=== PATIENT | female | born 1965 | race Caucasian/White ===

== ENCOUNTER → 2017-05-09 | Outpatient (CLI) | payer MEDICARE ==
[~2017-05-09] MED LIST: FUROSEMIDE INJ 10 MG/ML 4 ML VIAL ONE; SINCALIDE 3 MCG/VIAL INJ ONE
--- NOTE | 2017-05-12 19:59 | Diagnostic Imaging Report ---
Renal Scan with Lasix Washout Clinical information: 51 F with renal colic Technique: Following intravenous administration of 10 mCi of Tc-99m MAG3, dynamic images of the kidneys in the posterior projection were obtained through 40 minutes. Lasix 40 mg was administered intravenously at 10 minutes post injection of the tracer. Report: Left kidney: Perfusion of the left kidney is prompt. The kidney has a normal reniform shape. Extraction of tracer from the blood pool is mildly decreased. Clearance of tracer from the renal parenchyma is prompt. Two calices are very mildly ectatic but the pelvicalyceal system in general is not dilated. Physiologic pooling of tracer within the pelvicalyceal system is seen. Drainage of tracer from the pelvicalyceal system is adequate prior to administration of Lasix. Washout of tracer from the pelvicalyceal system following administration of Lasix is rapid with a T-1/2 of 4 minutes (normal less than 15 minutes). No significant stasis of tracer is seen within the left ureter. Right kidney: Perfusion to the right kidney is prompt. The right kidney has a normal reniform shape. Extraction of tracer by the renal parenchyma is mildly decreased. Clearance of tracer from the renal parenchyma is prompt. Two very mildly ectatic calices are seen in the upper pole of the kidney but the pelvicalyceal system in general is not dilated. Physiologic pooling of tracer within the pelvicalyceal system is seen. Drainage of tracer from the pelvicalyceal system is adequate prior to administration of Lasix. Washout of tracer from the pelvicalyceal system following administration of Lasix is rapid with a T-1/2 of 4 minutes (normal less than 15 minutes). No significant stasis of tracer is seen within the right ureter. Differential renal function: The left kidney contributes 50% of total renal function and the right kidney contributes 50% (normal 43-57%). Impression: 1. Cannot exclude very mild medical renal disease in the left kidney versus patient mildly dehydrated at the time of the study. No hydronephrosis is present. No physiologically significant obstruction of the renal collecting system is present. 2. Cannot exclude very mild medical renal disease in the right kidney versus patient mildly dehydrated at the time of the study. No hydronephrosis is present. No physiologically significant obstruction of the renal collecting system is present. 3. The differential renal function is preserved. Signed by: Dr. Leesa Enamorado M.D. on 05/12/2017 7:56 PM
== END ==
LOC: NM 11:31
PROVIDERS: ATTEND Urology
DX: N13.30 Unspecified hydronephrosis (principal); N23 Unspecified renal colic
CPT/HCPCS: 78708; A9562; J1940; J2805

== ENCOUNTER → 2017-05-21 | Day surgery (SDC) | payer BC ==
[2017-05-19 14:37] LABS: ANION GAP 14.4 mmol/L (8-16); BLOOD UREA NITROGEN 15 mg/dL (7-26); BUN/CREATININE RATIO 17 (6-25); CALCIUM 9.4 mg/dL (8.4-10.2); CARBON DIOXIDE 28 mmol/L (22-29); CHLORIDE 102 mmol/L (98-107); CREATININE, SERUM 0.89 mg/dL (0.57-1.11); EST GLOMERULAR FILTRATION RATE > 60 ML/MIN (60-); GLUCOSE 126 mg/dL (74-118); POTASSIUM 3.4 mmol/L (3.5-5.1); SODIUM 141 mmol/L (136-145)
[~2017-05-21] MED LIST changes: +ADDERALL 30 MG30 MG PO; +ALPRAZOLAM1 MG PO; +AMPICILLIN SOD 1 GM/NS 50ML 50 ML IV ONE; +ARMOUR THYROID60 MG PO; +BELLADONNA/OPIUM 60 MG SUPP PR ONE; +CEFTRIAXONE SOD 1 GM VIAL ONE; +CYMBALTA30 MG PO; +DEXAMETHASONE SOD PHOS INJ 4 MG/ML VIAL ONE; +FENTANYL CITRATE/PF 100MCG/2 ML INJ ONE; +FLUTICASONE INH; -FUROSEMIDE INJ 10 MG/ML 4 ML VIAL ONE; +FUROSEMIDE40 MG PO; +IMITREX25 MG PO; +IOPAMIDOL 610MG/1ML 300 MG/ML VIAL IV ONE; +LIDOCAINE HCL 2% LOCAL INJ 5 ML SDV VIAL INJ ONE; +LYRICA50 MG PO; +MEDROXYPROGEST2.5 MG PO; +MIDAZOLAM HCL 2 MG/2 ML VIAL ONE; +MIDODRINE HCL2.5 MG PO; +MORPHINE SULFAT30 M2 PO; +MOTRIN200 MG PO; +MULTIVITAMINS1 EAC7 PO; +OMEGA-31000 MG; +ONDANSETRON HCL INJ 2 MG/ML VIAL ONE; +POTASSIUM CHLO10 ME1 PO; +PROPOFOL IV EMULSION 10 MG/ML 20 ML VIAL ONE; +SALAGEN5 MG PO; +SEROQUEL25 MG PO; +SEVOFLURANE INHAL SOLN 250 ML PEN BTL ONE; -SINCALIDE 3 MCG/VIAL INJ ONE; +TYLENOL PO; +ZYRTEC10 M3 PO; +[UNRECOGNIZED DRUG - OTHER] PO
--- OUTSIDE RECORDS SUMMARY | 2017-05-21 07:44 | XMS REPORT | Summary of Care ---
Author Author SHEIKH Kenia, EDUARDO Organization Unknown Address Unknown Phone Unavailable Care Team Providers Care Paint Pourer Name Role Phone ADDIE LARIOS MD Unavailable Unavailable Unavailable Unavailable Functional Status Name Dates Details Functional status health issues are not documented Status: Name Dates Details Cognitive status health issues are not documented Status: Problems Name Dates Details Small fiber neuropathy (356.9, G62.9) Status: Active Depression (311, F32.9) Status: Active Medications Name Dates Details MS Contin 30 MG Oral Tablet Extended Release TAKE 1 TABLET 3 TIMES DAILY R.N. Active Lyrica 100 MG Oral Capsule * Refills: 0 R.N. Active Midodrine HCl TABS * Refills: 0 R.N. Active Adderall XR 30 MG Oral Capsule Extended Release 24 Hour * Refills: 0 R.N. Active Adderall 10 MG Oral Tablet * Refills: 0 R.N. Active Lasix 80 MG Oral Tablet * Refills: 0 R.N. Active Cymbalta 60 MG Oral Capsule Delayed Release Particles * Refills: 0 R.N. Active SEROquel XR 50 MG Oral Tablet Extended Release 24 Hour * Refills: 0 R.N. Active Klor-Con 10 10 MEQ Oral Tablet Extended Release * Refills: 0 R.N. Active Pilocarpine HCl - 5 MG Oral Tablet * Refills: 0 R.N. Active Estradiol 1 MG Oral Tablet * Refills: 0 R.N. Active MedroxyPROGESTERone Acetate 2.5 MG Oral Tablet * Refills: 0 R.N. Active Xanax 1 MG Oral Tablet * Refills: 0 R.N. Active SUMAtriptan Succinate 6 MG/0.5ML Subcutaneous Solution Auto-injector * Refills: 0 R.N. Active Flonase 50 MCG/ACT SUSP * Refills: 0 R.N. Active Meclizine HCl - 25 MG Oral Tablet * Refills: 0 R.N. Active [place] Thyroid 180 MG Oral Tablet * Refills: 0 R.N. Active Zyrtec TABS * Refills: 0 R.N. Active Multi Vitamin TABS * Refills: 0 R.N. Active Allergies and Adverse Reactions Name Dates Details codeine (Allergy) Reaction: Rash, Itching Status: Active Procedures Procedure Dates Details [PT] Aquatic Rehabilitations Date: 01-Apr-2017 [QLH] VITAMIN B6 Date: 01-Apr-2017 [QL] PARANEOPLASTIC AUTOANTIBODY EVAL. S Date: 01-Apr-2017 Immunization Name Dates Details Immunizations not documented Social History Name Dates Details - Status: Name Dates Details Never smoker Vital Signs Date Test Result Details 01-Apr-20178:46 BP Systolic 144 mm[Hg] Status: Comments: Location: LUE; Position: Sitting BP Diastolic 74 mm[Hg] Status: Comments: Location: LUE; Position: Sitting Height 64 in Status: Weight 292.7 lb Status: Body Mass Index Calculated 50.24 kg/m2 Status: Body Surface Area Calculated 2.3 m2 Status: Temperature 99.1 f Status: Comments: Method: Oral Heart Rate 96 /min Status: Respiration Rate 16 /min Status: Results Date Description Value Details [id number] Tobacco Use Screening Completed DONE [id number] [Q] PARANEOPLASTIC AB EVAL W/REFL TITER/WB,BASIC Comments: REPORT COMMENT:FASTING:NO TISSUE IFA OBSERVATION(S) SEE NOTE Comments: Undefined fluorescence pattern noted on cerebellum andhippocampus substrates.Staining of HEp2 cells suggests nuclear non-neuronalspecific antibodies are present. ANNA1 (HU) AB, IFA NEGATIVE Range: NEGATIVE ANNA2 (RI) AB, IFA NEGATIVE Range: NEGATIVE ANNA3 AB, IFA NEGATIVE Range: NEGATIVE PCA1 (YO) AB, IFA NEGATIVE Range: NEGATIVE PCA2 AB, IFA NEGATIVE Range: NEGATIVE MARINE ENGINE MACHINIST TR (DNER) AB, IFA NEGATIVE Range: NEGATIVE AGNA/SOX1 AB, IFA NEGATIVE Range: NEGATIVE AMPHIPHYSIN AB, IFA NEGATIVE Range: NEGATIVE CRMP5/CV2 AB, IFA NEGATIVE Range: NEGATIVE Comments: This test was developed and its analytical performancecharacteristics have been determined by [facility]. It has not beencleared or approved by FDA. This assay has been validatedpursuant to the CLIA regulations and is used for clinicalpurposes. SPECIMEN RECEIVED DATE AND TIME: VOLTAGE GATED CALCIUM CHANNEL (VGCC)AB ASSAY <30 pmol/L Range: <30 Comments: SPECIMEN RECEIVED DATE AND TIME: VOLTAGE GATED POTASSIUM CHANNEL (VGKC) AB <80 pmol/L Range: <80 Comments: This test was developed and its analytical performancecharacteristics have been determined by [facility]. It has not beencleared or approved by FDA. This assay has been validatedpursuant to the CLIA regulations and is used for clinicalpurposes.SPECIMEN RECEIVED DATE AND TIME: ACETYLCHOLIN RECEPTOR GANGLIONIC (ALPH 3) AB <53 pmol/L Range: <53 Comments: This test was developed and its analytical performancecharacteristics have been determined by [facility]. It has not beencleared or approved by FDA. This assay has been validatedpursuant to the CLIA regulations and is used for clinicalpurposes.SPECIMEN RECEIVED DATE AND TIME: VOLTAGE GATED CALCIUM CHANNEL (VGCC)TYPE N AB <54 pmol/L Range: <54 Comments: This test was developed and its analytical performancecharacteristics have been determined by [facility]. It has not beencleared or approved by FDA. This assay has been validatedpursuant to the CLIA regulations and is used for clinicalpurposes.SPECIMEN RECEIVED DATE AND TIME: STRIATED MUSCLE AB SCREEN NEGATIVE Range: NEGATIVE Comments: This test was developed and its analytical performancecharacteristics have been determined by [facility]. It has not beencleared or approved by FDA. This assay has been validatedpursuant to the CLIA regulations and is used for clinicalpurposes.SPECIMEN RECEIVED DATE AND TIME: ACETYLCHOLINE RECEPTOR BINDING ANTIBODY <0.30 nmol/L Comments: Reference Ranges for Acetylcholine Receptor Binding Antibody: Negative: < or=0.30 nmol/ LEquivocal: 0.31-0.49 nmol/L Positive: > or=0.50 nmol/LSPECIMEN RECEIVED DATE AND TIME: 04-Apr-201713:10 [[facility]] VITAMIN B6 Comments: REPORT COMMENT:FASTING:NO VITAMIN B6 16.6 ng/ml Range: 2.1-21.7 Comments: Vitamin supplementation within 24 hours prior to blood draw may affect the accuracy of results. This test was developed and its analytical performance characteristics have been determined by [facility]. It has not been cleared or approved by the USFood and Drug Administration. This assay has been validated pursuant to the CLIA regulations and is used for clinical purposes.SPECIMEN RECEIVED DATE AND TIME: 04-Apr-201713:10 [Q] PARANEOPLASTIC ANTIBODY, [place] (HU) AB, WB <11 {SI} Range: <11 [place] (RI) AB, WB <11 {SI} Range: <11 PCA1 (YO) AB, WB <11 {SI} Range: <11 CRMP5/CV2 AB/ WEB <11 {SI} Range: <11 AMPHIPHYSIN AB, WB <11 {SI} Range: <11 GAD65 AB, WB <11 {SI} Range: <11 Comments: This test was developed and its analytical performancecharacteristics have been determined by [facility]. It has not beencleared or approved by FDA. This assay has been validatedpursuant to the CLIA regulations and is used for clinicalpurposes. SPECIMEN RECEIVED DATE AND TIME: 04-Apr-201713:10 [Q] PARANEOPLASTIC AB,CBA/IFA Comments: REPORT COMMENT: FASTING:NO NMDAR1 AB,CBA NEGATIVE Range: NEGATIVE AMPAR1 AB, CBA NEGATIVE Range: NEGATIVE AMPAR2 AB, CBA NEGATIVE Range: NEGATIVE GABABR AB, CBA NEGATIVE Range: NEGATIVE Comments: This test was developed and its analytical performancecharacteristics have been determined by [facility]. It has not beencleared or approved by FDA. This assay has been validatedpursuant to the CLIA regulations and is used for clinicalpurposes. SPECIMEN RECEIVED DATE AND TIME: Plan of Care Name Dates Details Planned Observations Planned Goals not documented Planned Encounters Appointment; EDUARDO CELIS M.D. On: 03-Jun-2017 10:30 Instructions Name Dates Details Instructions not documented Encounters Appointment; EDUARDO CELIS M.D. Encounter Diagnosis: Problem not documented On: 01-Apr-2017 8:00
--- OUTSIDE RECORDS SUMMARY | 2017-05-21 07:44 | XMS REPORT ---
Author Author [facility] Address Unknown Phone Unavailable Care Team Providers Care Slunk Skin Curer Name Role Phone DORCAS PECK Unavailable Unavailable Problems This patient has no known problems. Allergies, Adverse Reactions, Alerts This patient has no known allergies or adverse reactions. Medications This patient has no known medications. Results Test Description Test Time Test Comments Text Results Atomic Results Result Comments RENAL SCAN W/LASIX [place] [address] Patient Name: MASSIMO ALANIS MR #: [id number] : 1965 Age/Sex: 51/F Req #: [id number] Adm Physician: Ordered by: DORCAS PECK MD Report #: [id number] Location: [place] Room/Bed: Procedure: [id number] NM/RENAL SCAN W/LASIX Exam Date: 05/09/17 Exam Time: 1235 REPORT STATUS: Signed Renal Scan with Lasix Washout Clinical information: 51 F with renal colic Technique: Following intravenous administration of 10 mCi of Tc-99m MAG3, dynamic images of the kidneys in the posterior projection were obtained through 40 minutes. Lasix 40 mg was administered intravenously at 10 minutes post injection of the tracer. Report: Left kidney: Perfusion of the left kidney is prompt. The kidney has a normal reniform shape. Extraction of tracer from the blood pool is mildly decreased. Clearance of tracer from the renal parenchyma is prompt. Two calices are very mildly ectatic but the pelvicalyceal system in general is not dilated. Physiologic pooling of tracer within the pelvicalyceal system is seen. Drainage of tracer from the pelvicalyceal system is adequate prior to administration of Lasix. Washout of tracer from the pelvicalyceal system following administration of Lasix is rapid with a T-1/2 of 4 minutes (normal less than 15 minutes). No significant stasis of tracer is seen within the left ureter. Right kidney : Perfusion to the right kidney is prompt. The right kidney has a normal reniform shape. Extraction of tracer by the renal parenchyma is mildly decreased. Clearance of tracer from the renal parenchyma is prompt. Two very mildly ectatic calices are seen in the upper pole of the kidney but the pelvicalyceal system in general is not dilated. Physiologic pooling of tracer within the pelvicalyceal system is seen. Drainage of tracer from the pelvicalyceal system is adequate prior to administration of Lasix. Washout of tracer from the pelvicalyceal system following administration of Lasix is rapid with a T-1/2 of 4 minutes (normal less than 15 minutes). No significant stasis of tracer is seen within the right ureter. Differential renal function: The left kidney contributes 50% of total renal function and the right kidney contributes 50% (normal 43-57%). Impression: 1. Cannot exclude very mild medical renal disease in the left kidney versus patient mildly dehydrated at the time of the study. No hydronephrosis is present. No physiologically significant obstruction of the renal collecting system is present. 2. Cannot exclude very mild medical renal disease in the right kidney versus patient mildly dehydrated at the time of the study. No hydronephrosis is present. No physiologically significant obstruction of the renal collecting system is present. 3. The differential renal function is preserved. Signed by: Dr. Nicola Brooks M.D. on 05/12/2017 7:56 PM Dictated By: NICOLA BROOKS MD 53 COPY TO: DORCAS PECK MD
--- OUTSIDE RECORDS SUMMARY | 2017-05-21 07:44 | XMS REPORT | Clinical Summary ---
Author Author [facility] Address Unknown Phone Unavailable Care Team Providers Care Engineering Coordinator Name Role Phone PCP Unavailable Allergies Not on File Current Medications Not on file Active Problems Not on file Social History Tobacco Use Types Packs/Day Years Used Date Never Assessed Sex Assigned at Date Recorded Not on file Last Filed Vital Signs Not on file Plan of Treatment Not on file Results Not on fileafter 05/20/2016
--- NOTE | 2017-07-13 12:56 | Operative Report ---
DATE OF PROCEDURE: May 15, 2017 PREOPERATIVE DIAGNOSES 1. Urinary tract infections. 2. Gross hematuria. POSTOPERATIVE DIAGNOSES 1. Urinary tract infections. 2. Gross hematuria. 3. Grade 2 cystocele. OPERATIONS PERFORMED 1. Cystourethroscopy with bilateral ureteral catheterization and retrograde ureteropyelography. 2. Interpretation of retrograde ureteropyelography. 3. Supervision of fluoroscopy, no radiologist present. ANESTHESIA: General. COMPLICATIONS: None. CLINICAL SUMMARY: Anila Stone is a 52-year-old woman with urinary tract infections and gross hematuria. She had some hydronephrosis and was evaluated and renal scanning showed equal and unobstructed function. She has a renal cyst that is noted. There was apparently a right kidney "blockage? that was ?opened" in February of 2016. There is possibly a mass near the left kidney and also a left renal cyst. She is brought to evaluate her. She is aware of the risks of bleeding, infection, injury to adjacent structures, need for additional procedures, and elected to proceed. OPERATIVE PROCEDURE IN DETAIL: Informed consent was verified. Anila Stone was properly identified, taken to operating room, and placed in the cystoscopy table in supine position. Anesthesia was uneventfully begun. The patient was then carefully and gently repositioned in dorsal lithotomy position with all pressure points well padded. Her genitalia were prepared and draped in the usual sterile fashion. A 22.5-Micronesian cystoscope sheath with an obturator in place was atraumatically inserted into in the patient's urethra and the bladder was drained. Panendoscopy of the urinary bladder revealed no suspicious mucosal lesions, no tumors, no stones, and no diverticula. Mild trabeculations were noted. An 8-Micronesian catheter was used to cannulate the ureter and retrograde ureteropyelography was performed. Interpretation of retrograde ureteropyelography. Contrast was instilled in a retrograde fashion bilaterally. There were no tumors, no stones, and no diverticula. Unobstructed drainage was observed bilaterally fluoroscopically. A lateral upper pole calyx versus the upper pole moiety of the midpole calyx appeared to be rather large and seems to be wrapping around the mass and assuming that mass is the left renal cyst, but further imaging will be done in the future to further assess her collecting system. As of right now, I do not see any obstruction and no suspicious lesions. The patient's bladder was then drained. The cystoscope was withdrawn. Pelvic examination under anesthesia revealed a grade 2 cystocele, no rectocele. No abnormal palpable pelvic masses could be appreciated. The patient was then uneventfully reversed from anesthesia and taken to recovery room in stable condition. There were no complications during the procedure. She tolerated the procedure well. Explicit postop instructions were given. We will the follow the patient in the office. Job#: [id number] FIDEL
== END | disposition home or self-care (01) ==
LOC: OR 07:42
PROVIDERS: ATTEND Urology
DX: N39.0 Urinary tract infection, site not specified (principal); N13.30 Unspecified hydronephrosis; N81.10 Cystocele, unspecified; N28.1 Cyst of kidney, acquired; N32.89 Other specified disorders of bladder; R80.9 Proteinuria, unspecified; M19.90 Unspecified osteoarthritis, unspecified site; E03.9 Hypothyroidism, unspecified; G47.33 Obstructive sleep apnea (adult) (pediatric); K58.9 Irritable bowel syndrome, unspecified; E66.01 Morbid (severe) obesity due to excess calories; F32.9 Major depressive disorder, single episode, unspecified; Z01.810 Encounter for preprocedural cardiovascular examination; Z01.812 Encounter for preprocedural laboratory examination; Z68.42 Body mass index [BMI] 45.0-49.9, adult; Z86.711 Personal history of pulmonary embolism; Z84.1 Family history of disorders of kidney and ureter
CPT/HCPCS: 36415; 52005; 74420; 80048; 81025; 93005; J0290; J0696; J1100; J2001; J2250; J2405; Q9967

== ENCOUNTER → 2024-04-01 | Day surgery (SDC) | payer MEDICARE ==
[2024-03-29 08:45] LABS: BASOPHILS # (AUTO) 0.1 (0.0-0.1); EOSINOPHILS # (AUTO) 0.3 (0.0-0.4); EOSINOPHILS % 3.4 % (0.0-6.0); HEMATOCRIT 41.2 % (34.2-44.1); HEMOGLOBIN 11.7 g/dL (12.0-16.0); LYMPHOCYTES # (AUTO) 2.8 (1.0-3.2); LYMPHOCYTES % 36.1 % (18.0-39.1); MEAN CORPUSCULAR HEMOGLOBIN 24.5 pg (28-32); MEAN CORPUSCULAR HGB CONC 28.4 g/dL (31-35); MEAN CORPUSCULAR VOLUME 86.2 fL (81-99); MONOCYTES # (AUTO) 0.6 (0.2-0.8); MONOCYTES % 8.3 % (4.4-11.3); NEUTROPHILS # (AUTO) 3.9 (2.1-6.9); NEUTROPHILS % 51.1 % (38.7-80.0); PLATELET COUNT 252 x10e3/uL (140-360); RED BLOOD COUNT 4.78 x10e6/uL (3.6-5.1); RED CELL DISTRIBUTION WIDTH 14.4 % (11.7-14.4); WHITE BLOOD COUNT 7.68 x10e3/uL (4.8-10.8)
[~2024-04-01] MED LIST changes: +AIMOVIG AU70 MG/1 ML IM; -AMPICILLIN SOD 1 GM/NS 50ML 50 ML IV ONE; +ARTHRITIS PAIN650 M2 PO; +BACLOFEN10 MG PO; -BELLADONNA/OPIUM 60 MG SUPP PR ONE; +BOSWELLIA SERRAT1 GM PO; +CARAFATE1 GM PO; -CEFTRIAXONE SOD 1 GM VIAL ONE; +CYCLOBENZAPRINE10 MG PO; -DEXAMETHASONE SOD PHOS INJ 4 MG/ML VIAL ONE; +ESTRACE42.5 GM ID; -FENTANYL CITRATE/PF 100MCG/2 ML INJ ONE; +HUMIRA40 MG/0.1 IM; +IMITREX6 MG/0.51 PO; +INDOCIN50 MG PO; +INDOMETHACIN PO; -IOPAMIDOL 610MG/1ML 300 MG/ML VIAL IV ONE; +LEVOTHYROXINE112 MCG PO; +MAGNESIUM OXID400 MG PO; +MELATONIN3 MG PO; -MIDAZOLAM HCL 2 MG/2 ML VIAL ONE; +NAMENDA10 MG PO; -ONDANSETRON HCL INJ 2 MG/ML VIAL ONE; +PLAQUENIL200 MG PO; +PROTONIX20 MG PO; +RELPAX40 MG PO; -SEVOFLURANE INHAL SOLN 250 ML PEN BTL ONE; +SUMATRIPTAN SUC25 MG PO
[2024-04-01] MEDS: LACTATED RINGER'S 1,000 ML ONE (05:40)
[2024-04-01 08:05] VITALS: TEMP 98
[2024-04-01 08:25] VITALS: BP 136/66; PULSE 65; RESP 18; O2SAT 99
== END | disposition home or self-care (01) ==
LOC: OR 05:23
PROVIDERS: ATTEND Internal Medicine Gastroenterology
DX: K29.50 Unspecified chronic gastritis without bleeding (principal); Z98.84 Bariatric surgery status; K21.9 Gastro-esophageal reflux disease without esophagitis; K28.9 Gastrojejunal ulcer, unspecified as acute or chronic, without hemorrhage or perforation; E66.01 Morbid (severe) obesity due to excess calories; Z78.9 Other specified health status; G89.29 Other chronic pain; F41.9 Anxiety disorder, unspecified; F32.A Depression, unspecified; Z88.6 Allergy status to analgesic agent; Z01.810 Encounter for preprocedural cardiovascular examination; Z01.812 Encounter for preprocedural laboratory examination; Z79.899 Other long term (current) drug therapy; Z86.711 Personal history of pulmonary embolism
CPT/HCPCS: 36415; 43239; 85025; 88304; 88342; 93005; J2003; J2704; J7121